=== PATIENT | male | born 1960 | race Caucasian/White ===

== ENCOUNTER 2017-10-05 14:44 | Inpatient (IN) | payer OTHER ==
[2017-10-05] MEDS: SOD CHLORIDE 0.9% 1,000 ML IV ×2 (17:22→20:23)
[2017-10-05] MEDS: ONDANSETRON 4 MG INJ IV (17:26)
[2017-10-05] MEDS: HYDROmorphONE 1 MG/ML SYG IV (17:26)
[2017-10-05 17:42] LABS: ADD MAN DIFF? NO
[2017-10-05 17:43] LABS: WHITE BLOOD COUNT 15.6 10^3/ul (4.8-10.8)
[2017-10-05 17:43] LABS: BASOPHIL # 0.1 10^3/ul (0.0-0.1); BASOPHILS % 0.4 % (0.0-2.0); EOSINOPHILS # 0.1 10^3/ul (0.0-0.5); EOSINOPHILS % 0.7 % (0.0-7.0); HEMATOCRIT 41.3 % (42.0-52.0); HEMOGLOBIN 14.2 g/dl (14.0-18.0); LYMPHOCYTES # 1.9 10^3/ul (0.8-2.9); LYMPHOCYTES % 11.9 % (15.0-51.0); MEAN CORPUSCULAR HEMOGLOBIN 30.3 pg (29.0-33.0); MEAN CORPUSCULAR HGB CONC 34.4 g/dl (32.0-37.0); MEAN CORPUSCULAR VOLUME 88.1 fl (82.0-101.0); MEAN PLATELET VOLUME 10.2 fl (7.4-10.4); MONOCYTE # 1.4 10^3/ul (0.3-0.9); MONOCYTES % 9.1 % (0.0-11.0); NEUTROPHIL # 11.8 10^3/ul (1.6-7.5); NEUTROPHILS % 75.8 % (39.0-77.0); PLATELET COUNT 312 10^3/UL (140-415); RED BLOOD COUNT 4.69 10^6/ul (4.70-6.10); RED CELL DISTRIBUTION WIDTH 11.3 % (11.5-14.5)
[2017-10-05 18:05] LABS: ALANINE AMINOTRANSFERASE 42 IU/L (13-69); ALBUMIN 4.7 g/dl (3.3-4.9); ALBUMIN/GLOBULIN RATIO 0.94; ALKALINE PHOSPHATASE 107 IU/L (42-121); ANION GAP 24 (8-16); ASPARTATE AMINO TRANSFERASE 42 IU/L (15-46); BILIRUBIN,INDIRECT 0.6 mg/dl (0-1.1); BILIRUBIN,TOTAL 0.6 mg/dl (0.2-1.3); BLOOD UREA NITROGEN 35 mg/dl (7-20); CALCIUM 10.2 mg/dl (8.4-10.2); CARBON DIOXIDE 25 mmol/L (21-31); CHLORIDE 91 mmol/L (97-110); CREATININE 1.44 mg/dl (0.61-1.24); GLUCOSE 130 mg/dl (70-220); LIPASE 90 U/L (23-300); POTASSIUM 3.8 mmol/L (3.5-5.1); SODIUM 136 mmol/L (135-144); TOTAL PROTEIN 9.7 g/dl (6.1-8.1)
[2017-10-05] MEDS: ERTAPENEM SODIUM 1 GM in SOD CHLORIDE 0.9% 100 ML IVPB (19:39)
[2017-10-05] MEDS ORDERED: ACETAMINOPHEN 1000 MG/100 ML IVPB (20:00)
[2017-10-05] MEDS ORDERED: ACETAMINOPHEN 325 MG TAB PO ×2 (20:30→22:00)
[2017-10-05] MEDS ORDERED: ONDANSETRON 4 MG INJ IV (20:30)
[2017-10-05] MEDS ORDERED: ACETAMINOPHEN 650 MG SUPP PR (22:00)
[2017-10-05] MEDS ORDERED: morphine 2 MG INJ IV (22:00)
[2017-10-05] MEDS ORDERED: PIPER-TAZO 3.375 GM IV (PMX) 100 ML (22:41)
[2017-10-05] MEDS: LIDOCAINE 1%/EPI 30 ML INJ (22:49)
[2017-10-05] MEDS: BUPIVACAINE 0.25% (MPF) 30 ML INJ (22:49)
[2017-10-05] MEDS ORDERED: LIDOCAINE 2% (SDV) 5 ML INJ (22:59)
[2017-10-05] MEDS ORDERED: ONDANSETRON 4 MG INJ ×2 (22:59→23:24)
[2017-10-05] MEDS ORDERED: ROCURONIUM 50 MG INJ (22:59)
[2017-10-05] MEDS ORDERED: METOCLOPRAMIDE 10 MG INJ (22:59)
[2017-10-05] MEDS ORDERED: PROPOFOL 20 ML (22:59)
[2017-10-05] MEDS ORDERED: DEXAMETHASONE 4 MG/ML 1 ML INJ (22:59)
[2017-10-05] MEDS ORDERED: SUCCINYLCHOLINE CHLORIDE 100 MG/5 ML SYG IV (22:59)
[2017-10-05] MEDS ORDERED: ROPIVACAINE 0.2% 20 ML VIAL ×2 (23:00→23:01)
[2017-10-05] MEDS ORDERED: FAMOTIDINE 20 MG INJ (23:00)
[2017-10-05] MEDS ORDERED: SUGAMMADEX SODIUM 200 MG/2 ML VIAL IV ×2 (23:09→23:14)
[2017-10-05] MEDS ORDERED: MEPERIDINE 25 MG INJ (23:24)
[2017-10-05] MEDS ORDERED: DIPHENHYDRAMINE 50 MG INJ IV (23:30)
[2017-10-05] MEDS ORDERED: HYDROmorphONE (0.2 MG/ML) 10ML SYG IV ×2 (23:30)
[2017-10-05] MEDS ORDERED: MEPERIDINE 25 MG INJ IV (23:30)
[2017-10-06] MEDS: MEPERIDINE 25 MG INJ IM (00:16)
[2017-10-06] MEDS: ONDANSETRON 4 MG INJ IV (00:21)
[2017-10-06] MEDS: D5-NS + KCL 20 MEQ 1,000 ML IV ×3 (01:14→17:00)
[2017-10-06] MEDS: PIPER-TAZO 3.375 GM IV (PMX) 100 ML IVPB ×5 (01:14→23:46)
[2017-10-06] MEDS: morphine 2 MG INJ IV ×4 (01:18→12:23)
[2017-10-06] MEDS: LACTATED RINGER'S 1,000 ML IV ×2 (04:57→14:30)
[2017-10-06 05:12] LABS: ADD MAN DIFF? NO
[2017-10-06 05:20] LABS: BASOPHILS % 0.3 % (0.0-2.0); EOSINOPHILS % 0.1 % (0.0-7.0); HEMATOCRIT 32.9 % (42.0-52.0); HEMOGLOBIN 11.4 g/dl (14.0-18.0); LYMPHOCYTES % 6.3 % (15.0-51.0); MEAN CORPUSCULAR HEMOGLOBIN 30.8 pg (29.0-33.0); MEAN CORPUSCULAR HGB CONC 34.7 g/dl (32.0-37.0); MEAN CORPUSCULAR VOLUME 88.9 fl (82.0-101.0); MEAN PLATELET VOLUME 9.3 fl (7.4-10.4); MONOCYTE # 1.2 10^3/ul (0.3-0.9); MONOCYTES % 7.5 % (0.0-11.0); NEUTROPHIL # 12.9 10^3/ul (1.6-7.5); NEUTROPHILS % 84.6 % (39.0-77.0); PLATELET COUNT 286 10^3/UL (140-415); RED CELL DISTRIBUTION WIDTH 11.2 % (11.5-14.5)
[2017-10-06 05:20] LABS: WHITE BLOOD COUNT 15.3 10^3/ul (4.8-10.8)
[2017-10-06 05:22] LABS: ADD UMIC NO; UR ASCORBIC ACID NEGATIVE (NEGATIVE); UR BILIRUBIN (Dip) NEGATIVE (NEGATIVE); UR BLOOD (Dip) NEGATIVE (NEGATIVE); UR CLARITY CLEAR (CLEAR); UR COLOR YELLOW (YELLOW); UR GLUCOSE (Dip) 1+ mg/dL (NEGATIVE); UR KETONES (Dip) NEGATIVE (NEGATIVE); UR LEUKOCYTE ESTERASE (Dip) NEGATIVE Leu/ul (NEGATIVE); UR NITRITE (Dip) NEGATIVE (NEGATIVE); UR SPECIFIC GRAVITY (Dip) 1.034 (1.003-1.030); UR TOTAL PROTEIN (Dip) NEGATIVE (NEGATIVE); UR UROBILINOGEN (Dip) NEGATIVE (NEGATIVE)
[2017-10-06 05:50] LABS: ALANINE AMINOTRANSFERASE 37 IU/L (13-69); ALBUMIN 3.5 g/dl (3.3-4.9); ALBUMIN/GLOBULIN RATIO 1.02; ALKALINE PHOSPHATASE 64 IU/L (42-121); ANION GAP 15 (8-16); ASPARTATE AMINO TRANSFERASE 31 IU/L (15-46); BILIRUBIN,INDIRECT 0.5 mg/dl (0-1.1); BILIRUBIN,TOTAL 0.5 mg/dl (0.2-1.3); BLOOD UREA NITROGEN 25 mg/dl (7-20); CALCIUM 8.3 mg/dl (8.4-10.2); CARBON DIOXIDE 27 mmol/L (21-31); CHLORIDE 100 mmol/L (97-110); CREATININE 1.03 mg/dl (0.61-1.24); GLUCOSE 165 mg/dl (70-220); POTASSIUM 4.6 mmol/L (3.5-5.1); SODIUM 137 mmol/L (135-144); TOTAL PROTEIN 6.9 g/dl (6.1-8.1)
[2017-10-06] MEDS: ENOXAPARIN 40 MG/0.4 ML SYG SC (09:27)
[2017-10-07] MEDS: LACTATED RINGER'S 1,000 ML IV ×2 (03:30→13:30)
[2017-10-07] MEDS: D5-NS + KCL 20 MEQ 1,000 ML IV ×3 (03:39→23:42)
[2017-10-07 05:09] LABS: ADD MAN DIFF? NO
[2017-10-07 05:12] LABS: WHITE BLOOD COUNT 10.4 10^3/ul (4.8-10.8)
[2017-10-07 05:12] LABS: BASOPHIL # 0.1 10^3/ul (0.0-0.1); BASOPHILS % 0.7 % (0.0-2.0); EOSINOPHILS # 0.2 10^3/ul (0.0-0.5); EOSINOPHILS % 1.4 % (0.0-7.0); HEMATOCRIT 33.6 % (42.0-52.0); HEMOGLOBIN 11.3 g/dl (14.0-18.0); LYMPHOCYTES # 1.6 10^3/ul (0.8-2.9); LYMPHOCYTES % 15.6 % (15.0-51.0); MEAN CORPUSCULAR HEMOGLOBIN 30.5 pg (29.0-33.0); MEAN CORPUSCULAR HGB CONC 33.6 g/dl (32.0-37.0); MEAN CORPUSCULAR VOLUME 90.8 fl (82.0-101.0); MEAN PLATELET VOLUME 9.5 fl (7.4-10.4); MONOCYTE # 1.3 10^3/ul (0.3-0.9); MONOCYTES % 12.1 % (0.0-11.0); NEUTROPHILS % 67.9 % (39.0-77.0); PLATELET COUNT 311 10^3/UL (140-415); RED CELL DISTRIBUTION WIDTH 11.6 % (11.5-14.5)
[2017-10-07 05:41] LABS: ANION GAP 12 (8-16); BLOOD UREA NITROGEN 20 mg/dl (7-20); CALCIUM 8.3 mg/dl (8.4-10.2); CARBON DIOXIDE 27 mmol/L (21-31); CHLORIDE 105 mmol/L (97-110); CREATININE 0.87 mg/dl (0.61-1.24); GLUCOSE 128 mg/dl (70-220); MAGNESIUM 2.3 mg/dl (1.7-2.5); POTASSIUM 4.4 mmol/L (3.5-5.1); SODIUM 140 mmol/L (135-144)
[2017-10-07] MEDS: PIPER-TAZO 3.375 GM IV (PMX) 100 ML IVPB ×3 (06:04→17:11)
[2017-10-07] MEDS: ENOXAPARIN 40 MG/0.4 ML SYG SC (06:09)
[2017-10-07 16:43] LABS: ADD MAN DIFF? NO
[2017-10-07 16:45] LABS: BASOPHIL # 0.1 10^3/ul (0.0-0.1); BASOPHILS % 0.6 % (0.0-2.0); EOSINOPHILS # 0.4 10^3/ul (0.0-0.5); EOSINOPHILS % 3.6 % (0.0-7.0); HEMATOCRIT 34.6 % (42.0-52.0); HEMOGLOBIN 11.6 g/dl (14.0-18.0); LYMPHOCYTES # 1.7 10^3/ul (0.8-2.9); LYMPHOCYTES % 17.1 % (15.0-51.0); MEAN CORPUSCULAR HEMOGLOBIN 30.8 pg (29.0-33.0); MEAN CORPUSCULAR HGB CONC 33.5 g/dl (32.0-37.0); MEAN CORPUSCULAR VOLUME 91.8 fl (82.0-101.0); MEAN PLATELET VOLUME 9.4 fl (7.4-10.4); MONOCYTE # 1.3 10^3/ul (0.3-0.9); MONOCYTES % 13.3 % (0.0-11.0); NEUTROPHILS % 60.9 % (39.0-77.0); PLATELET COUNT 309 10^3/UL (140-415); RED BLOOD COUNT 3.77 10^6/ul (4.70-6.10); RED CELL DISTRIBUTION WIDTH 11.7 % (11.5-14.5)
[2017-10-07 16:45] LABS: WHITE BLOOD COUNT 9.9 10^3/ul (4.8-10.8)
[2017-10-07] MEDS: METOCLOPRAMIDE 10 MG INJ IV (17:11)
[2017-10-07] MEDS: HYDROCODONE/APAP (5/325) TAB PO (17:11)
[2017-10-08] MEDS: METOCLOPRAMIDE 10 MG INJ IV ×5 (00:10→23:30)
[2017-10-08] MEDS: PIPER-TAZO 3.375 GM IV (PMX) 100 ML IVPB ×5 (00:10→23:30)
[2017-10-08] MEDS: HYDROCODONE/APAP (5/325) TAB PO ×2 (02:07→11:24)
[2017-10-08] MEDS: D5-NS + KCL 20 MEQ 1,000 ML IV ×3 (04:10→19:42)
[2017-10-08 05:35] LABS: ANION GAP 13 (8-16); BLOOD UREA NITROGEN 16 mg/dl (7-20); CALCIUM 8.6 mg/dl (8.4-10.2); CARBON DIOXIDE 25 mmol/L (21-31); CHLORIDE 106 mmol/L (97-110); CREATININE 0.66 mg/dl (0.61-1.24); GLUCOSE 130 mg/dl (70-220); POTASSIUM 4.3 mmol/L (3.5-5.1); SODIUM 140 mmol/L (135-144)
[2017-10-08] MEDS: ENOXAPARIN 40 MG/0.4 ML SYG SC (06:45)
[2017-10-08] MEDS: ONDANSETRON 4 MG INJ IV ×2 (16:09→21:39)
[2017-10-09] MEDS: D5-NS + KCL 20 MEQ 1,000 ML IV ×2 (03:37→15:10)
[2017-10-09] MEDS: ONDANSETRON 4 MG INJ IV ×4 (03:37→17:27)
[2017-10-09] MEDS: METOCLOPRAMIDE 10 MG INJ IV ×2 (06:16→11:52)
[2017-10-09] MEDS: PIPER-TAZO 3.375 GM IV (PMX) 100 ML IVPB ×4 (06:16→23:29)
[2017-10-09] MEDS: ENOXAPARIN 40 MG/0.4 ML SYG SC (06:47)
[2017-10-09] MEDS: HYDROCODONE/APAP (5/325) TAB PO (23:34)
[2017-10-10] MEDS: D5-NS + KCL 20 MEQ 1,000 ML IV ×2 (01:42→11:42)
[2017-10-10] MEDS: PIPER-TAZO 3.375 GM IV (PMX) 100 ML IVPB ×2 (05:16→12:40)
[2017-10-10] MEDS: ENOXAPARIN 40 MG/0.4 ML SYG SC (06:08)
[2017-10-10 06:54] LABS: ANION GAP 12 (8-16); BLOOD UREA NITROGEN 10 mg/dl (7-20); CALCIUM 8.5 mg/dl (8.4-10.2); CARBON DIOXIDE 26 mmol/L (21-31); CHLORIDE 109 mmol/L (97-110); CREATININE 0.81 mg/dl (0.61-1.24); GLUCOSE 83 mg/dl (70-220); POTASSIUM 4.3 mmol/L (3.5-5.1); SODIUM 143 mmol/L (135-144)
[2017-10-10] MEDS: HYDROCODONE/APAP (5/325) TAB PO (12:47)
== END 2017-10-10 16:52 | disposition home or self-care (01) | DRG 339 ==
LOC: SDS 23:25 → E/R 14:44 → SDS 10-06 01:00 → MS1 10-06 01:05 → SDS 10-06 11:10 → REC 10-06 12:00 → MS1 10-06 12:32
PROC: 0DTJ4ZZ Resection of Appendix, Percutaneous Endoscopic Approach (ICD-10-PCS; principal; 2017-10-05 22:00)
DX: K35.2 Acute appendicitis with generalized peritonitis (principal); N17.9 Acute kidney failure, unspecified; K56.7 Ileus, unspecified; K56.600 Partial intestinal obstruction, unspecified as to cause
CPT/HCPCS: 36415; 74018; 74177; 80048; 80053; 81003; 83690; 83735; 85025; 88304; 96374; 96375; 99285-25